=== PATIENT | female | born 1985 ===

== ENCOUNTER 2021-04-25 12:07 | Emergency (ER) | payer SELFPAY ==
[2021-04-25 12:30] VITALS: BP 129/55
--- NOTE | 2021-04-25 13:16 | Emergency Department Report ---
ED Eye Problem HPI - General Chief complaint: Eye Problems Stated complaint: EYE IS RED Time Seen by Provider: 04/25/21 12:45 Source: patient Mode of arrival: Ambulatory Limitations: No Limitations - History of Present Illness Initial comments: 35-year-old female presents to the ER today with complaints of right eye redness, pain and irritation. Patient states that symptoms started yesterday morning when she woke up. She reported some crusting and matting to the eye. She reports a small amount of green mucus drainage from the eye. She states that the eye hurts and it moore and sometimes itchy. She reports some blurry vision from the eye. She admits that she does wear glasses and also contacts. She states that the last time she will contact was 4 days ago. She denies any injury to the eye. She denies any grinding or welding. She reports no additional symptoms at this time. chief complaint: eye pain, eye redness -: Gradual, days(s) (2) - Related Data Previous Rx's Medication Instructions Recorded Last Taken Type Ofloxacin 0.3% [Ocuflox 0.3% opth] 2 drops OP QID 7 Days #1 bottle 04/25/21 Unknown Rx Allergies Allergy/AdvReac Type Severity Reaction Status Date / Time No Known Allergies Allergy Verified 04/25/21 13:44 ED Review of Systems ROS: Stated complaint: EYE IS RED Other details as noted in HPI Comment: All other systems reviewed and negative Constitutional: denies: chills, fever Eyes: eye pain, eye discharge, vision change ENT: denies: ear pain, throat pain Respiratory: denies: cough, shortness of breath, SOB with exertion, SOB at rest, wheezing Cardiovascular: denies: chest pain, palpitations Endocrine: no symptoms reported Gastrointestinal: denies: abdominal pain, nausea, diarrhea, constipation, hematemesis, melena, hematochezia Genitourinary: denies: urgency, dysuria, discharge Musculoskeletal: denies: back pain, joint swelling, arthralgia Skin: denies: rash, lesions, change in color, change in hair/nails, pruritus Neurological: denies: headache, weakness, numbness, paresthesias, confusion, abnormal gait, vertigo Psychiatric: denies: anxiety, depression, auditory hallucinations, visual hallucinations, homicidal thoughts, suicidal thoughts ED Past Medical Hx - Past Medical History Previous Medical History?: No - Surgical History Past Surgical History?: No - Medications Home Medications: Home Medications Medication Instructions Recorded Confirmed Last Taken Type Ofloxacin 0.3% [Ocuflox 0.3% opth] 2 drops OP QID 7 Days #1 bottle 04/25/21 Unknown Rx ED Physical Exam - General Limitations: No Limitations General appearance: alert, in no apparent distress - Head Head exam: Present: atraumatic, normocephalic, normal inspection - Eye Eye exam: Present: PERRL, EOMI, conjunctival injection (mild injecting right eye ). Absent: scleral icterus, nystagmus, periorbital swelling, periorbital tenderness Pupils: Present: normal accommodation, other (No fluorescein uptake on patiño lamp exam) - Expanded Eye Exam Expanded Sclera/Conjunctival: Normal Inspection: Right Visual acuity (R) = 20/: 13 Visual acuity (L) = 20/: 15 With correction: Yes - ENT ENT exam: Present: normal exam - Neck Neck exam: Present: normal inspection, full ROM - Respiratory Respiratory exam: Present: normal lung sounds bilaterally. Absent: respiratory distress - Cardiovascular Cardiovascular Exam: Present: regular rate, normal rhythm, normal heart sounds - GI/Abdominal GI/Abdominal exam: Present: soft. Absent: distended, tenderness, guarding, rebound - Neurological Exam Neurological exam: Present: alert, oriented X3, CN II-XII intact, normal gait - Psychiatric Psychiatric exam: Present: normal affect, normal mood - Skin Skin exam: Present: intact ED Course Vital Signs 04/25/21 12:30 Temperature 98.2 F Pulse Rate 85 Respiratory 16 Rate Blood Pressure 129/55 [Right] O2 Sat by Pulse 100 Oximetry Critical care attestation.: If time is entered above; I have spent that time in minutes in the direct care of this critically ill patient, excluding procedure time. ED Disposition Clinical Impression: Conjunctivitis Disposition: 01 HOME / SELF CARE / HOMELESS Is pt being admited?: No Does the pt Need Aspirin: No Condition: Stable Instructions: Viral Conjunctivitis, Adult, Bacterial Conjunctivitis, Adult Additional Instructions: Recommend that you use antibiotic eyedrops as prescribed. I recommend lots of handwashing, and try to avoid touching the other eye after you touch your right eye. Follow-up closely with your PCP. Return to the ER if your symptoms worsens or changes in any way. Prescriptions: Ofloxacin 0.3% [Ocuflox 0.3% opth] 2 drops OP QID 7 Days #1 bottle Referrals: [facility] [Provider Group] - 3-5 Days Forms: Work/School Release Form(ED) Time of Disposition: 14:19
[2021-04-25] MEDS ORDERED: FLUORESCEIN 1 MG STRIP OP ONE (13:20)
== END 2021-04-25 14:49 | disposition home or self-care (01) ==
LOC: ED 12:07
DX: H10.89 Other conjunctivitis (principal)
CPT/HCPCS: 99282